=== PATIENT | male | born 1980 | race Caucasian/White ===

== ENCOUNTER 2019-01-20 05:11 | Emergency (ER) | payer MEDICAID, SELFPAY ==
[2019-01-20 05:13] VITALS: BP 161/107; PULSE 121; RESP 25; TEMP 36.8; O2SAT 98; BMI 23.6
[2019-01-20 05:16] VITALS: PULSE 121; O2SAT 99
--- NOTE | 2019-01-20 05:20 | ED.VIS.GEN ---
History of Present Illness Chief Complaint: Overdose Narrative: Patient is a 38-year-old male who presents after a heroin overdose. He snorts this. He denies IV drug use. He required 4 mg of Narcan before waking. Currently he complains of a headache but has no other complaints and denies any recent illness. He denies medical history. Past Medical History - Allergies and Home Meds Allergies/Adverse Reactions: Allergies No Known Allergies Allergy (Verified 01/20/19 05:13) Past Medical History: None Surgical History: no surgical history Smoking Status: Current every day smoker Review of Systems All systems negative except as indicated General: Denies: Fever Cardiovascular: Denies: Chest pain Respiratory: Denies: Dyspnea Gastrointestinal: Denies: Nausea, Vomiting Neurological: Reports: Headache Physical Exam Vital Signs/Narrative: Vital Signs Temp Pulse Resp BP Pulse Ox 01/20/19 05:16 121 H 99 01/20/19 05:13 98.2 F 121 H 25 H 161/107 H 98 Inital Vital Signs reviewed: Yes General: Well nourished Head: Normocephalic Eyes: EOMI ENT: Moist mucous membranes Neck: Supple Cardiovascular: - - Heart is regular tachycardia Respiratory: No distress, CTA bilaterally Abdomen: Soft, Nontender, Nondistended Skin: Normal color Neurological: Alert Psychological: Agitated Diagnostic/Tx/Re-eval - Medical Decision Making Patient has been observed for an hour without any recurrence of symptoms and has remained stable. His is on his way to pick him up and he will be discharged with family. ED Disposition - Plan for ED Patient: Disposition: Home or Assisted Living Diagnosis: Narcotic overdose Instructions: Opiate Abuse, OVERDOSE, Opiate
[2019-01-20 06:15] VITALS: BP 117/73; PULSE 121; RESP 18; O2SAT 100
== END 2019-01-20 06:41 | disposition home or self-care (01) ==
PROVIDERS: Emergency Provider Emergency Medicine
DX: T40.1X1A Poisoning by heroin, accidental (unintentional), initial encounter (principal); R00.0 Tachycardia, unspecified; F11.10 Opioid abuse, uncomplicated; F17.200 Nicotine dependence, unspecified, uncomplicated
CPT/HCPCS: 99285; J7030